=== PATIENT | female | born 1945 | race Caucasian/White ===

== ENCOUNTER → 2017-06-09 | Outpatient (CLI) | payer MEDICARE, OTHER ==
--- NOTE | 2017-06-09 12:18 | MAMMOGRAPHY REPORT ---
BILATERAL DIGITAL SCREENING MAMMOGRAM WITH CAD: 06/09/2017 CLINICAL HISTORY: Routine screening. Patient has no complaints. TECHNIQUE: Bilateral CC and MLO views were obtained. Current study was also evaluated with a Compute r Aided Detection (CAD) system. COMPARISON: Comparison is made to exams dated: 06/07/2016 mammogram, 06/04/2015 mammogram, 06/02/2014 m ammogram, 05/30/2013 mammogram, 05/29/2012 mammogram, and 05/27/2011 mammogram - [facility] nter. BREAST COMPOSITION: There are scattered areas of fibroglandular density in both breasts. FINDINGS: There is a 6 mm nodular asymmetry in the superior, middle one third of the right breast on the MLO view, not definitely seen on the CC view. Although this could represent normal overlapping fibrolinear tissue, additional spot compression tomosynthesis views and possibly ultrasound are recom mended. There are stable groupings of benign-appearing microcalcifications and benign rim calcifications bila terally in the breasts. No other suspicious mass, architectural distortion or cluster of suspicious microcalcifications is seen. IMPRESSION: ACR BI-RADS CATEGORY 0: INCOMPLETE EVALUATION: NEED ADDITIONAL IMAGING EVALUATION 1. The 6 m nodular asymmetry in the superior right breast needs additional imaging evaluation. 2. The patient reported a right axillary lump during this screening mammogram and this could also be further evaluated with ultrasound at the time of diagnostic workup in the right breast. The patient will be called to schedule an appointment. Approximately 10% of breast cancers are not detected with mammography. A negative mammographic report should not delay biopsy if a clinically suggestive mass is present. Laurence Dowling M.D. ay/:06/09/2017 09:53:00 Pay Clerk: Cinthia Rocha RT(R)(M), [facility] letter sent: Addl Imaging 0 BI-RADS Code: ACR BI-RADS Category 0: Incomplete Evaluation: Need Additional Imaging Evaluation
== END | disposition home or self-care (01) ==
LOC: C.MAMM 09:08
PROVIDERS: ATTEND Family Medicine
DX: Z12.31 Encounter for screening mammogram for malignant neoplasm of breast (principal); N64.89 Other specified disorders of breast; N63 Unspecified lump in breast

== ENCOUNTER → 2017-06-20 | Outpatient (CLI) | payer MEDICARE, OTHER ==
--- NOTE | 2017-06-20 13:10 | MAMMOGRAPHY REPORT ---
UNILATERAL RIGHT DIGITAL DIAGNOSTIC MAMMOGRAM TOMOSYNTHESIS AND TARGETED RIGHT ULTRASOUND: 06/20/2017 CLINICAL HISTORY: 71 year-old woman called back from screening mammography for a 6 m nodular asymmetr y in the superior middle one third of the right breast, best seen on the MLO view. She also reported right axillary lump and focal pain in the right upper outer quadrant. TECHNIQUE: Right CC and MLO 2-D and tomosynthesis images were obtained. COMPARISON: Comparison is made to exams dated: 06/09/2017 mammogram, 06/07/2016 mammogram, 06/04/2015 m ammogram, 06/02/2014 mammogram, 05/30/2013 mammogram, and 05/29/2012 mammogram - [facility] enter. BREAST COMPOSITION: There are scattered areas of fibroglandular density in the right breast. FINDINGS: The spot compression MLO view of the right breast demonstrates persistence of a low-density lobulated, 4.9 x 6.3 mm nodular asymmetry. No associated architectural distortion or microcalcifica tion. When comparing back to prior available mammograms, this nodular asymmetry appears somewhat sim ilar to the 2014 and 2012 mammograms, suggesting benignity. This is not definitely identified on the spot compression CC view, but is located in the middle of the breast based on the localizer bar from the spot compression MLO view. However, further evaluation with ultrasound was performed. Targeted ultrasound was performed in the superior right breast with particular attention to the 11:00 , 12:00 and 1:00 axes. Additional ultrasound was performed in the area of pain and lump pointed out by the patient in the right upper outer quadrant and axilla. In the right axilla in the area of conc audrey, there is a morphologically normal lymph node with thin cortex measuring 0.07 mm. A few other mo rphologically normal lymph nodes are seen. In the area of pain near the inferior right axilla/right axillary tail, no suspicious solid or cystic mass is identified. Throughout the remainder of the sup erior right breast including the retroareolar breast, no discrete solid or cystic mass is seen. IMPRESSION: ACR-BI-RADS CATEGORY 3: PROBABLY BENIGN, TARGETED ULTRASOUND ACR-BI-RADS CATEGORY 3: PRO BABLY BENIGN 1. There is a persistent 6 mm nodular asymmetry in the superior middle one third of the right breast , but no sonographic correlate identified. This asymmetry appears similar to prior mammograms includ ing the 2014 and 2012 exams, suggesting benignity. However, given the discrete nature, a short inter rogelio follow-up diagnostic right mammogram and possible repeat ultrasound is recommended to ensure stab ility in 6 months. 2. There is no suspicious mass or lymphadenopathy correlating with the pain and lump in the right ax illa. Therefore, continued clinical follow-up is recommended. These results and recommendations were discussed with the patient and her at the time of the exam. She tentatively scheduled the follow-up appointment prior to leaving our department. Approximately 10% of breast cancers are not detected with mammography. A negative mammographic report should not delay biopsy if a clinically suggestive mass is present. Laurence Dowling M.D. ay/:06/20/2017 11:28:13 Material Expeditor: Cinthia DACOSTA)(Reyna), [facility] letter sent: Follow Up Recommended 3 BI-RADS Code: ACR-BI-RADS Category 3: Probably Benign Ultrasound BI-RADS: ACR-BI-RADS Category 3: Pr obably Benign
== END | disposition home or self-care (01) ==
LOC: C.MAMM 09:05
PROVIDERS: ATTEND Family Medicine
DX: N64.89 Other specified disorders of breast (principal)

== ENCOUNTER → 2017-12-25 | Outpatient (CLI) | payer MEDICARE ==
--- NOTE | 2017-12-25 15:04 | MAMMOGRAPHY REPORT ---
UNILATERAL RIGHT DIGITAL DIAGNOSTIC MAMMOGRAM TOMOSYNTHESIS WITH CAD: 12/25/2017 CLINICAL HISTORY: 72-year-old woman presents for follow-up in the right breast for a 6 mm nodular asy mmetry in the superior breast seen on the MLO view. No sonographic correlate initially identified. TECHNIQUE: Right breast tomosynthesis in addition to standard 2D mammography was performed. Current seema noland was also evaluated with a Computer Aided Detection (CAD) system. COMPARISON: Comparison is made to exams dated: 06/20/2017 ultrasound, 06/20/2017 mammogram, 06/09/2017 ma mmogram, 06/07/2016 mammogram, 06/04/2015 mammogram, and 06/02/2014 mammogram - [facility] nter. BREAST COMPOSITION: There are scattered areas of fibroglandular density in the right breast. FINDINGS: On the 2-D views of the right breast, the nodular asymmetry in the superior middle one thir d of the breast is less prominent comparing to the screening mammogram performed 06/09/2017. There i s a small 5 mm nodular asymmetry, low in density, in the retroareolar middle one third of the right b reast on the current MLO view, which appears very similar to the prior 2013, 2012 and 2011 mammograms , suggesting benignity. There are scattered benign rim and stable grouped calcifications in the righ t breast. No new suspicious masses, calcifications, areas of architectural distortion or asymmetries are identified. Given the decreased prominence of the asymmetry and long-term stability, this is co nsidered benign. Recommend return to annual screening mammography schedule, due in May 2018. IMPRESSION: ACR BI-RADS CATEGORY 2: BENIGN Less prominent nodular asymmetry in the superior middle one third of the right breast, and stability dating back to at least 2011, confirming benignity. There is no mammographic evidence of malignancy. Return to annual mammogram screening schedule is recommended (due in May 2018). The patient has be en verbally notified of the results. Approximately 10% of breast cancers are not detected with mammography. A negative mammographic report should not delay biopsy if a clinically suggestive mass is present. Laurence Dowling M.D. ay/:12/25/2017 08:56:47 Press Hand: Luanne HERNANDEZ(R)(Reyna), [facility] letter sent: Normal 1/2 BI-RADS Code: ACR BI-RADS Category 2: Benign
== END | disposition home or self-care (01) ==
LOC: C.MAMM 08:21
PROVIDERS: ATTEND Family Medicine
DX: N64.89 Other specified disorders of breast (principal)

== ENCOUNTER → 2018-01-16 | Day surgery (SDC) | payer MEDICARE ==
[2018-01-09 08:43] VITALS: BMI 33.0
[~2018-01-16] VITALS: Ht 170.2 cm; Wt 98.2 kg
[~2018-01-16] MED LIST: ASPCH81X PO; BENZ200C59 PO; CYCL0.052 OPB; GABA-113 PO; HYDR1SOL OTL; LEVO25TA5 PO; LIDOCAINE HCL 2% 2 ML VIAL (20MG/ML) ONE; LISI10TA PO; OMEG10007 PO; PRLSR20 PO; PROPOFOL IV EMULSION 10 MG/ML 20 ML VIAL IV ONE; SIMV20TA2 PO; SODIUM CHLORIDE 0.9% 500ML 500 ML IV ONE
[2018-01-16 08:30] VITALS: Ht 170.2 cm; Wt 98.2 kg
--- NOTE | 2018-01-16 09:10 | Endo History and Physical ---
History & Physical Date of Service: Jan 16, 2018. Chief Complaint: BARRETTS ESOPHAGUS Referring Physician: DR. OMAIRA KATZ History of Present Illness History of Lujan's, surveillance biopsies needed. Past Surgical History Hx Cardiac Surgery: No Hx Internal Defibrillator: No Hx Pacemaker: No Hx Abdominal Surgery: Yes (HYSTERECTOMY) Hx of Implantable Prosthesis: No Hx Post-Op Nausea and Vomiting: No Hx Cancer Surgery: No Hx Thoracic Surgery: No Hx Orthopedic: No Hx Urinary Tract Surgery: No Family History Colon CA Social History Smoking Status: Never Smoker Hx Substance Use: No Hx Alcohol Use: No Allergies Coded Allergies: No Known Allergies (Verified , 01/09/18) Current Medications Reported Home Medications Medications Dose Route/Sig Max Daily Dose Days Date Category Aspirin Chewable (Aspirin) 81 Mg Chew 81 Mg PO HS 01/09/18 Reported [place]-3 (Fish Oil) 1 Ea Cap 1 Cap PO BID 01/09/18 Reported Restasis (Cyclosporine (Ophth)) 0.05 % Emu 1 Drop OPB BID 01/09/18 Reported Hydrocortisone/Acetic Aci (Acetic Acid/Hydrocortisone) 150 Drops/10 Ml Soln 1 Drop OTL DAILY PRN 01/09/18 Reported Zocor (Simvastatin) 20 Mg Tab 20 Mg PO HS 01/09/18 Reported Neurontin (Gabapentin) 300 Mg Cap 300 Mg PO TID 01/09/18 Reported Prilosec (Omeprazole) 20 Mg Capcr 20 Mg PO QPM 01/09/18 Reported Prinivil (Lisinopril) 10 Mg Tab 10 Mg PO DAILY AFTERNOON 01/09/18 Reported Tessalon Perles (Benzonatate) 200 Mg Cap 200 Mg PO DIRECTED PRN 01/09/18 Reported Levothyroxine Sodium 25 Mcg Tab 1 Tab PO QAM 01/09/18 Reported Vital Signs Weight (Kilograms): 98.18 Height (Feet): 5 Height (Inches): 7 Date Time Temp Pulse Resp B/P (MAP) Pulse Ox O2 Delivery O2 Flow Rate FiO2 01/16/18 08:41 36.8 86 20 169/73 (105) 93 Room Air Physical Exam General Appearance: WD/WN, no apparent distress Respiratory/Chest: Auscultation: breath sounds normal, no wheezing Cardiovascular: Heart Auscultation: RRR, no murmurs Abdomen: Inspection & Palpation: soft, no tenderness, guarding & rebound Assessment and Plan EGD with biopsy
--- NOTE | 2018-01-16 09:36 | GI REPORT ---
Procedure Date: 01/16/2018 9:05 AM Procedure: Upper GI endoscopy Indications: Follow-up of Lujan's esophagus Medicines: Monitored Anesthesia Care Complications: No immediate complications. Estimated blood loss: None. Estimated Blood Loss: Estimated blood loss: none. Procedure: Pre-Anesthesia Assessment: - Prior to the procedure, a History and Physical was performed, and patient medications, allergies and sensitivities were reviewed. The patient's tolerance of previous anesthesia was reviewed. - ASA Grade Assessment: III - A patient with severe systemic disease. After obtaining informed consent, the endoscope was passed under direct vision. Throughout the procedure, the patient's blood pressure, pulse, and oxygen saturations were monitored continuously. The scope was introduced through the mouth, and advanced to the third part of duodenum. The upper GI endoscopy was accomplished with ease. The patient tolerated the procedure well. Findings: The upper third of the esophagus, middle third of the esophagus and lower third of the esophagus were normal. The esophagus and gastroesophageal junction were examined with white light and narrow band imaging (NBI) from a forward view and retroflexed position. There were esophageal mucosal changes secondary to established short-segment Lujan's disease. These changes involved the mucosa at the upper extent of the gastric folds (39 cm from the incisors) extending to the Z-line (39 cm from the incisors). Islands of salmon-colored mucosa were present. Mucosa was biopsied with a cold forceps for histology in 4 quadrants at the gastroesophageal junction. One specimen bottle was sent to pathology. A small hiatal hernia was present. The stomach was normal. The examined duodenum was normal. Verification of patient identification for the specimen was done by the physician and nurse using the patient's name, date and medical record number. Impression: - Normal upper third of esophagus, middle third of esophagus and lower third of esophagus. - Esophageal mucosal changes secondary to established short-segment Lujan's disease. Biopsied. - Small hiatal hernia. - Normal stomach. - Normal examined duodenum. Recommendation: - Await pathology results. - Repeat upper endoscopy in 3 years for surveillance. Manjinder Tate M.D. Manjinder Tate MD 01/16/2018 9:36:13 AM This report has been signed electronically. Note Initiated On: 01/16/2018 9:05 AM I attest to the content of the Intraoperative Record and orders documented therein, exceptions below
--- NOTE | 2018-01-16 09:37 | Discharge Instructions ---
Endoscopy Patient Instructions Date / Procedure(s) Performed Jan 16, 2018. EGD Allergy Information Coded Allergies: No Known Allergies (Verified , 01/09/18) Discharge Date / Findings Jan 16, 2018. Short segment Lujan's esophagitis, small hiatal hernia Medication Instructions Stopped Medication(s): ASPRIN Restart Stopped Medication(s): Restart all medications today. Provider Instructions Activity Restrictions - No exercising or heavy lifting for 24 hours. - Do not drink alcohol the day of the procedure. - Do not drive a car or operate machinery until the day after the procedure. - Do not make any important decisions or sign important papers in 24 hours after the procedure. Following Day: - Return to full activity which may include returning to work/school. Diet Start your diet with liquids and light foods (jello, soup, juice, toast). Then eat your usual diet if not nauseated. Treatment For Common After Affects For mild abdominal pain, bloating, or excessive gas: - Rest - Eat lightly - Lie on right side Follow-Up Information Follow-up with DR. OMAIRA KATZ as scheduled Anesthesia Information What You Should Know You have had a procedure that required some medicine to reduce anxiety and discomfort. This treatment is called moderate sedation. After receiving the treatment, you may be sleepy, but you will be able to breathe on your own. The effects of the treatment may last for several hours. Follow these instructions along with Activity/Diet recommendations noted above: * Do NOT do anything where dizziness or clumsiness would be dangerous. * Rest quietly at home today, then you can be up and about tomorrow. * Have a responsible person stay with you the rest of today. * You may have had an I.V. today. If so, you may take the dressing off later today. Recommendations Call your doctor if: * Trouble breathing * Continuous vomiting for more than 24 hours * Temperature above 101 degrees * Severe abdominal pain or bloating * Pain not relieved by pain medicine ordered * There is increased drainage or redness from any incision * A large amount of rectal bleeding greater than 2-3 tablespoons. (If you had a polyp/s removed or have hemorrhoids, a small amount of blood - from the rectum is to be expected.) * You have any unanswered questions or concerns. IN THE EVENT OF A SERIOUS EMERGENCY, GO TO THE NEAREST EMERGENCY ROOM Your discharge instructions were prepared by provider Manjinder Tate. Patient Instructions Signature Page Sherri Dillan Patient (or Guardian) Signature/Date: I have read and understand the instructions given to me by my caregivers. Caregiver/RN/Doctor Signature/Date: The above-named patient and/or guardian has received patient instructions on this date. + Original Patient Signature Page (only) stays with chart. Please make copy for patient.
[2018-01-16 09:51] VITALS: BP 133/76; PULSE 57; O2SAT 96
--- NOTE | 2018-01-16 10:06 | Anesthesiology Progress Note ---
Anesthesia Post Op Note Date & Time Jan 16, 2018 at 10:06 Vital Signs Vital Signs Past 12 Hours Date Time Temp Pulse Resp B/P (MAP) Pulse Ox O2 Delivery O2 Flow Rate FiO2 01/16/18 09:51 57 20 133/76 (95) 96 Room Air 01/16/18 09:41 79 20 136/69 (91) 93 Room Air 01/16/18 09:36 91 20 118/62 (80) 95 Room Air 01/16/18 08:41 36.8 86 20 169/73 (105) 93 Room Air Notes Mental Status: alert / awake / arousable, participated in evaluation Pt Amnestic to Procedure: Yes Nausea / Vomiting: adequately controlled Pain: adequately controlled Airway Patency, RR, SpO2: stable & adequate BP & HR: stable & adequate Hydration State: stable & adequate Anesthetic Complications: no major complications apparent
== END | disposition home or self-care (01) ==
LOC: C.GI 08:09
PROVIDERS: ATTEND Internal Medicine Gastroenterology
DX: Z09 Encounter for follow-up examination after completed treatment for conditions other than malignant neoplasm (principal); K22.70 Barrett's esophagus without dysplasia; K44.9 Diaphragmatic hernia without obstruction or gangrene; K29.50 Unspecified chronic gastritis without bleeding; I10 Essential (primary) hypertension; M19.90 Unspecified osteoarthritis, unspecified site; E66.9 Obesity, unspecified; Z68.33 Body mass index [BMI] 33.0-33.9, adult; Z90.710 Acquired absence of both cervix and uterus; Z79.82 Long term (current) use of aspirin; Z79.899 Other long term (current) drug therapy; Z80.0 Family history of malignant neoplasm of digestive organs